=== PATIENT | male | born 1975 | race Caucasian/White ===

== ENCOUNTER → 2024-06-20 06:38 | Day surgery (SDC) | payer BC, SELFPAY | LOC: GI 06:38 | PROVIDERS: ATTENDING PHYSICIAN Internal Medicine | DX: K22.70 Barrett's esophagus without dysplasia (principal); K29.70 Gastritis, unspecified, without bleeding; K21.00 Gastro-esophageal reflux disease with esophagitis, without bleeding; K22.89 Other specified disease of esophagus; K44.9 Diaphragmatic hernia without obstruction or gangrene; Z87.19 Personal history of other diseases of the digestive system | CPT/HCPCS: 43239; 88305; 88342 ==

== ENCOUNTER → 2025-07-10 14:33 | Outpatient (REF) | payer SELFPAY | LOC: HWRAD 14:33 | PROVIDERS: ATTENDING PHYSICIAN Family Medicine | DX: R93.1 Abnormal findings on diagnostic imaging of heart and coronary circulation (principal) | CPT/HCPCS: 75571 ==

== ENCOUNTER → 2025-08-07 09:15 | Outpatient (REF) | payer OTHER, SELFPAY | LOC: HWRCS 09:15 | PROVIDERS: ATTENDING PHYSICIAN Internal Medicine Cardiovascular Disease; FAMILY PHYSICIAN Family Medicine | DX: R94.31 Abnormal electrocardiogram [ECG] [EKG] (principal); R06.09 Other forms of dyspnea | CPT/HCPCS: 93306 ==

== ENCOUNTER → 2025-08-08 09:51 | Outpatient (REF) | payer OTHER, SELFPAY | LOC: RCS 09:51 | PROVIDERS: ATTENDING PHYSICIAN Internal Medicine Cardiovascular Disease; FAMILY PHYSICIAN Family Medicine | DX: R94.31 Abnormal electrocardiogram [ECG] [EKG] (principal); R06.09 Other forms of dyspnea | CPT/HCPCS: 93017 ==